=== PATIENT | female | born 1980 | race Caucasian/White ===

== ENCOUNTER 2017-05-10 10:53 | Outpatient (CLI) | payer BC ==
--- NOTE | 2017-05-10 17:45 | Ultrasound Report ---
EXAM: FIRST TRIMESTER OBSTETRIC ULTRASOUND (Less than 11 weeks) EXAM DATE: 05/10/2017 05:26 PM. CLINICAL HISTORY: Check viability please. LMP: 03/10/2017. COMPARISONS: None. TECHNIQUE: Transabdominal and transvaginal ultrasound examination with static image documentation. CLINICAL DATES: EGA 8 weeks 5 days with SATURNINO 12/15/2017 based on LMP. ASSESSMENT: Gestational Sac: Single intrauterine. Mean gestational sac diameter: 20.1 mm = 6 weeks 6 days. Embryo: CRL (crown-rump length) 3.9 mm = 6 weeks 2 days. Cardiac activity: 111 beats per minute. Yolk sac: 4.7 mm. Amniotic fluid: Not accurately assessed at this gestational age. Early placenta: Not visible at this gestational age. Other: Perigestational fluid collection demonstrated superiorly 0.8 x 0.4 x 1.5 cm. MATERNAL STRUCTURES: Uterus: Anteverted. Unremarkable. Cervix: Closed. Right Ovary/Adnexa: Cyst noted, 3.2 x 3.0 x 2.8 cm, otherwise Unremarkable. The ovary measures 4.3 x 3.5 x 3.3 cm, volume 25.9 cc. Left Ovary/Adnexa: Unremarkable. The ovary measures 2.9 x 2.0 x 2.4 cm, volume 7.2 cc. Free Fluid: None. Other: None. IMPRESSION: 1. Single viable intrauterine at EGA 6 weeks 2 days with SATURNINO 01/01/2018 based on discordant , which is concordant with clinical dates. 2. Small superior perigestational fluid collection noted. 3. Right ovarian cyst. [facility] Referring Provider Line: [phone] SITE ID: [id number]
== END 2017-05-10 10:54 | disposition home or self-care (01) ==
LOC: DI 10:53
PROVIDERS: ATTEND Registered Nurse
DX: Z36.9 Encounter for antenatal screening, unspecified (principal); N91.1 Secondary amenorrhea; O34.81 Maternal care for other abnormalities of pelvic organs, first trimester; N83.201 Unspecified ovarian cyst, right side
CPT/HCPCS: 36415; 76801; 84702

== ENCOUNTER 2017-06-24 11:52 | Outpatient (CLI) | payer BC ==
[2017-06-24 12:37] LABS: BASOPHILS # (AUTO) 0.1 10^3/uL (0.0-0.1); BASOPHILS % (AUTO) 0.4 %; EOSINOPHILS # (AUTO) 0.1 10^3/uL (0.0-0.7); EOSINOPHILS % (AUTO) 1.2 %; HGB - HEMOGLOBIN 13.4 g/dL (12.0-16.0); LYMPHOCYTES # (AUTO) 2.3 10^3/uL (1.5-3.5); LYMPHOCYTES % (AUTO) 18.3 %; MEAN CORPUSCULAR HEMOGLOBIN 26.3 pg (27.0-31.0); MEAN CORPUSCULAR VOLUME 79.7 fL (81.0-99.0); MEAN PLATELET VOLUME 8.3 fL (7.9-10.8); MONOCYTES # (AUTO) 0.9 10^3/uL (0.0-1.0); MONOCYTES % (AUTO) 7.2 %; NEUTROPHILS # (AUTO) 9.2 10^3/uL (1.5-6.6); NEUTROPHILS % (AUTO) 72.9 %; PLT - PLATELET COUNT 300 10^3/uL (130-450); RED CELL DISTRIBUTION WIDTH 15.4 % (12.0-15.0); WHITE BLOOD COUNT 12.6 x10^3/uL (4.8-10.8)
[2017-06-24 12:56] LABS: HB2 TOTAL 14.9 g/dL; HEMOGLOBIN A1C 0.53 g/dL; HEMOGLOBIN A1C % 5.4 % (4.6-6.2)
[2017-06-24 13:21] LABS: CREATININE 0.5 mg/dL (0.4-1.0)
[2017-06-24 14:45] LABS: BILIRUBIN,URINE NEGATIVE (NEGATIVE); GLUCOSE, URINE (UA) NEGATIVE (NEGATIVE); KETONES,URINE (UA) NEGATIVE (NEGATIVE); LEUKOCYTE ESTERASE, URINE NEGATIVE (NEGATIVE); NITRITE,URINE NEGATIVE (NEGATIVE); OCCULT BLOOD,URINE NEGATIVE (NEGATIVE); PH,URINE 6.5 PH (5.0-7.5); PROTEIN,URINE NEGATIVE (NEGATIVE); UROBILINOGEN,URINE 0.2 (NORMAL) E.U./dL (NORMAL)
[2017-06-24 14:54] LABS: BACTERIA,URINE Few /HPF (None Seen); CLARITY,URINE CLEAR (CLEAR); RBC,URINE 0-5 /HPF (0-5); SQUAMOUS EPITHELIAL CELL,UR FEW Squamous (<= Few)
[2017-06-25 11:36] LABS: HEPATITIS C ANTIBODY NON-REACTIVE (NON-REACTIVE)
[2017-06-25 14:12] LABS: HEPATITIS B SURFACE ANTIGEN NON-REACTIVE (NON-REACTIVE)
[2017-06-25 16:09] LABS: HIV AG/AB 4TH GEN NON-REACTIVE (NON-REACTIVE)
== END 2017-06-24 11:53 | disposition home or self-care (01) ==
LOC: LAB 11:52
PROVIDERS: ATTEND Registered Nurse
DX: O09.521 Supervision of elderly multigravida, first trimester (principal); Z36.9 Encounter for antenatal screening, unspecified
CPT/HCPCS: 36415; 80048; 81001; 81599; 83036; 85025; 86592; 86762; 86803; 86850; 86900; 86901; 87340; 87389

== ENCOUNTER 2017-08-19 12:29 | Outpatient (CLI) | payer BC ==
--- NOTE | 2017-08-19 15:48 | Ultrasound Report ---
Procedure Date: 08/19/2017 Accession Number: [id number] / [id number] Procedure: US - OB Detailed Eval CPT Code: FULL RESULT: EXAM: OB Detailed Eval DATE: 08/19/2017 2:57 PM CLINICAL HISTORY: ENCOUNTER FOR SUPRVSN NORMAL ,SECOND TRIM TECHNIQUE: Real-time scanning was performed with assistance representative static images obtained. COMPARISON: None LAST MENSTRUAL PERIOD: 05/10/2017 Clinical Age: 21 weeks 0 days US Age: 21 weeks 1 days EFW Hadlock: 362 grams Heart Rate: 146 bpm EDC: 12/30/2017 US EDC: 12/29/2017 BPD Hadlock: 21 weeks 2 days; Mean mm 51 HC Hadlock: 21 weeks 4 days; Mean mm 194 AC Hadlock: 20 weeks 3 days; Mean mm 153 FL Hadlock: 20 weeks 2 days; Mean mm 33 Presentation: Breech Placental Location: Anterior Cervical Length: 4.4 cm Amniotic Fluid: ANDREA Subjectively normal; MVP 3.2 cm FINDINGS: There is a single viable intrauterine gestation, in breech presentation. heart rate is 146 BPM. The placenta is anterior, without evidence of previa. Amniotic fluid volume is subjectively normal, with a deepest pocket of 3.2 cm. No free fluid or adnexal lesion is appreciated. The following anatomic structures were visualized and appear normal: The intracranial contents, including the ventricles and posterior fossa; the lips and orbits; the spine; the heart, including 4 chamber view and outflow tracts, and diaphragm; the abdominal contents, including the stomach, the bilateral kidneys, and urinary bladder, as well as a normal 3-vessel cord insertion; 4 limbs. IMPRESSION: Single viable intrauterine gestation, with size in keeping with LMP dating. Normal anatomic survey.
== END 2017-08-19 12:30 | disposition home or self-care (01) ==
LOC: DI 12:29
PROVIDERS: ATTEND Registered Nurse
DX: Z34.82 Encounter for supervision of other normal pregnancy, second trimester (principal)
CPT/HCPCS: 76811

== ENCOUNTER 2017-09-03 08:00 | Outpatient (CLI) | payer BC | END 2017-09-03 08:01 | LOC: LAB.R 08:00 | PROVIDERS: ATTEND Registered Nurse | DX: R82.99 Other abnormal findings in urine (principal) | CPT/HCPCS: 87086 ==

== ENCOUNTER 2017-09-30 17:57 | Outpatient (CLI) | payer BC ==
[2017-09-30 18:38] LABS: BASOPHILS % (AUTO) 0.3 %; EOSINOPHILS # (AUTO) 0.1 10^3/uL (0.0-0.7); EOSINOPHILS % (AUTO) 0.8 %; HGB - HEMOGLOBIN 12.2 g/dL (12.0-16.0); LYMPHOCYTES # (AUTO) 2.4 10^3/uL (1.5-3.5); LYMPHOCYTES % (AUTO) 15.9 %; MEAN CORPUSCULAR HEMOGLOBIN 25.9 pg (27.0-31.0); MEAN CORPUSCULAR HGB CONC 33.3 g/dL (32.0-36.0); MEAN CORPUSCULAR VOLUME 77.9 fL (81.0-99.0); MEAN PLATELET VOLUME 7.9 fL (7.9-10.8); MONOCYTES # (AUTO) 0.9 10^3/uL (0.0-1.0); MONOCYTES % (AUTO) 5.8 %; NEUTROPHILS # (AUTO) 11.6 10^3/uL (1.5-6.6); NEUTROPHILS % (AUTO) 77.2 %; PLT - PLATELET COUNT 335 10^3/uL (130-450); RED BLOOD COUNT 4.72 10^6/uL (4.20-5.40); RED CELL DISTRIBUTION WIDTH 14.9 % (12.0-15.0)
== END 2017-09-30 17:58 | disposition home or self-care (01) ==
LOC: LAB 17:57
PROVIDERS: ATTEND Registered Nurse
DX: Z34.82 Encounter for supervision of other normal pregnancy, second trimester (principal)
CPT/HCPCS: 36415; 82950; 85025; 86850

== ENCOUNTER 2017-10-14 11:31 | Outpatient (CLI) | payer BC ==
--- NOTE | 2017-10-14 15:34 | Ultrasound Report ---
Reason: UTERINE SIZE-DATE DISCREPANCY, SECOND TRIMESTER Procedure Date: 10/14/2017 Accession Number: [id number] / [id number] Procedure: US - OB F/U or Repeat CPT Code: FULL RESULT: EXAM: COMPLETE OBSTETRICAL ULTRASOUND EXAM DATE: 10/14/2017 12:26 PM. CLINICAL HISTORY: Ultrasound size and date discrepancy. COMPARISON: 08/19/2017. TECHNIQUE: Real-time sonographic evaluation of the fetus performed by the flour tester. Multiple sales representative meats static images were saved for review. DATING: Established EGA 29 weeks and 0 days with SATURNINO 12/30/2017 based on first trimester ultrasound dated 05/10/2017. EGA 30 weeks 0 days with SATURNINO 12/23/2017 based on the current ultrasound. GENERAL EVALUATION [place] . Cardiac activity: 146 bpm. movement: Visualized. Presentation: Cephalic. Placenta: position. No evidence for previa. Umbilical cord: 3 vessel cord. Central placental cord origin. Amniotic fluid: Subjectively normal. MVP 6.8 cm. BIOMETRY Bi-Parietal Diameter (BPD): 7.7 cm, 30 weeks/5 day Head Circumference (HC): 27.6 cm, 30 weeks/1 days Abdominal Circumference (AC): 26.5 cm, 30 weeks/4days Femur Length (FL): 5.6 cm, 29 weeks/2 days Estimated Weight: 1530 gm, 70.2 percentile for 30 weeks/0 days. ANATOMY The intracranial structures, profile, face/nose/lips, spine, 4 chamber heart and outflow tracts, stomach, abdominal wall and cord insertion, diaphragm, kidneys, bladder, and extremities were visualized and demonstrate no abnormality. MATERNAL STRUCTURES Uterus: Unremarkable. Cervix: Long and closed. Transabdominal length cm. Right ovary/adnexa: Unremarkable. Left ovary/adnexa: Unremarkable. Free fluid: None. IMPRESSION: 1. [place] live intrauterine with gestational age 29 weeks/0 days based on initial ultrasound. 2. Estimated weight is within expected limits for assigned dating. 3. Normal anatomic survey. No anatomic abnormalities are detected at this time. [facility]
== END 2017-10-14 11:32 | disposition home or self-care (01) ==
LOC: DI 11:31
PROVIDERS: ATTEND Registered Nurse
DX: O26.842 Uterine size-date discrepancy, second trimester (principal); Z3A.29 29 weeks gestation of pregnancy
CPT/HCPCS: 76816

== ENCOUNTER 2017-10-25 13:08 | Outpatient (CLI) | payer BC ==
[2017-10-25 13:46] LABS: HGB - HEMOGLOBIN 11.8 g/dL (12.0-16.0); MEAN CORPUSCULAR HEMOGLOBIN 25.5 pg (27.0-31.0); MEAN CORPUSCULAR HGB CONC 33.4 g/dL (32.0-36.0); MEAN CORPUSCULAR VOLUME 76.2 fL (81.0-99.0); MEAN PLATELET VOLUME 8.3 fL (7.9-10.8); RED BLOOD COUNT 4.65 10^6/uL (4.20-5.40); RED CELL DISTRIBUTION WIDTH 15.2 % (12.0-15.0); WHITE BLOOD COUNT 12.6 x10^3/uL (4.8-10.8)
[2017-10-25 14:10] LABS: ALBUMIN/GLOBULIN RATIO 0.8 (1.0-2.2); BILIRUBIN,TOTAL 0.2 mg/dL (0.2-1.0); CREATININE 0.7 mg/dL (0.4-1.0); TOTAL PROTEIN 6.6 g/dL (6.7-8.2)
[2017-10-25 15:34] LABS: PROTEIN/CREATININE RATIO,URINE 0.2 (<=0.2)
== END 2017-10-25 13:09 | disposition home or self-care (01) ==
LOC: LAB 13:08
PROVIDERS: ATTEND Nurse Practitioner Obstetrics & Gynecology
DX: O13.9 Gestational [pregnancy-induced] hypertension without significant proteinuria, unspecified trimester (principal)
CPT/HCPCS: 36415; 80053; 82570; 84156; 84550; 85027

== ENCOUNTER 2017-11-17 14:11 | Outpatient (CLI) | payer BC ==
[2017-11-17 14:36] LABS: HGB - HEMOGLOBIN 11.7 g/dL (12.0-16.0); MEAN CORPUSCULAR HEMOGLOBIN 24.7 pg (27.0-31.0); MEAN CORPUSCULAR HGB CONC 32.9 g/dL (32.0-36.0); MEAN CORPUSCULAR VOLUME 75.1 fL (81.0-99.0); MEAN PLATELET VOLUME 8.1 fL (7.9-10.8); RED BLOOD COUNT 4.73 10^6/uL (4.20-5.40); RED CELL DISTRIBUTION WIDTH 14.9 % (12.0-15.0); WHITE BLOOD COUNT 13.9 x10^3/uL (4.8-10.8)
[2017-11-17 14:40] LABS: COLLECTION TIME,URINE 1440 min; TOTAL VOLUME,URINE 2400 mL
[2017-11-17 14:49] LABS: ALBUMIN 2.9 g/dL (3.2-5.5); ALBUMIN/GLOBULIN RATIO 0.8 (1.0-2.2); BILIRUBIN,TOTAL 0.2 mg/dL (0.2-1.0); CALCIUM 8.9 mg/dL (8.5-10.3); CREATININE 0.7 mg/dL (0.4-1.0); TOTAL PROTEIN 6.4 g/dL (6.7-8.2); URIC ACID 4.1 mg/dL (2.6-7.2)
[2017-11-17 14:50] LABS: CREATININE,URINE 88.5 mg/dL; PROTEIN/CREATININE RATIO,URINE 0.2 (<=0.2)
== END 2017-11-17 14:12 | disposition home or self-care (01) ==
LOC: LAB 14:11
PROVIDERS: ATTEND Nurse Practitioner Obstetrics & Gynecology
DX: O13.3 Gestational [pregnancy-induced] hypertension without significant proteinuria, third trimester (principal)
CPT/HCPCS: 36415; 80053; 81599; 82570; 82575; 83615; 84156; 84550; 85027

== ENCOUNTER 2017-11-20 10:20 | Outpatient (CLI) | payer BC ==
[2017-11-20 11:11] VITALS: BP 141/89
== END 2017-11-20 11:15 | disposition home or self-care (01) ==
LOC: WFO 10:20 → FBP 10:21 → WFO 11:15
PROVIDERS: ATTEND Registered Nurse
DX: O14.03 Mild to moderate pre-eclampsia, third trimester (principal); O26.843 Uterine size-date discrepancy, third trimester; Z3A.34 34 weeks gestation of pregnancy
CPT/HCPCS: 59025; 76816

== ENCOUNTER 2017-11-20 11:18 | Outpatient (CLI) | payer BC ==
--- NOTE | 2017-11-20 16:43 | Ultrasound Report ---
Reason: UTERINE SIZE-DATE DISCREPANCY 3RD TRIMESTER Procedure Date: 11/20/2017 Accession Number: [id number] / [id number] Procedure: US - OB F/U or Repeat CPT Code: FULL RESULT: EXAM: COMPLETE OBSTETRICAL ULTRASOUND EXAM DATE: 11/20/2017 11:56 AM. CLINICAL HISTORY: Size, date discrepancy. COMPARISON: OB follow-up or repeat 10/14/2017 11:40 AM. TECHNIQUE: Real-time sonographic evaluation of the fetus performed by the crank hand. Multiple sales representative meats static images were saved for review. DATING: Established EGA 34 weeks 2 days with SATURNINO 12/30/2017 based on the initial ultrasound. Last menstrual period reported as 03/10/2017 with SATURNINO 12/15/2017. EGA 36 weeks and 4 days with SATURNINO 12/14/2017 based on the current ultrasound. GENERAL EVALUATION [place] . Cardiac activity: 150 bpm. movement: Visualized. Presentation: Cephalic. Placenta: Anterior position. No evidence for previa. Amniotic fluid: ANDREA 15.8 MVP 5.4 cm. BIOMETRY Bi-Parietal Diameter (BPD): 9 cm, 36 weeks 3 days. Head Circumference (HC): 33.3 cm, 38 weeks 1 day. Abdominal Circumference (AC): 33.5 cm, 37 weeks 3 days. Femur Length (FL): 6.6 cm, 34 weeks 1 day. Estimated Weight: 2973 gm, 95th percentile for 34 weeks and 2 days. MATERNAL STRUCTURES Uterus: Unremarkable. Cervix: Long and closed. Transabdominal length 4.4 cm. Adnexa not seen. Free fluid: None. IMPRESSION: 1. [place] live intrauterine with gestational age 34 weeks 2 days based on the initial ultrasound and an estimated gestational age of 36 weeks and 3 days based on the last menstrual period. 2. The estimated gestational age on today's ultrasound is 36 weeks and 4 days which is concordant with the last menstrual period. The estimated weight would represent approximately the 60th percentile for a gestation of that age. ABHIJEET
== END 2017-11-20 11:19 | disposition home or self-care (01) ==
LOC: DI 11:18
PROVIDERS: ATTEND Nurse Practitioner Obstetrics & Gynecology
DX: O26.843 Uterine size-date discrepancy, third trimester (principal)
CPT/HCPCS: 76816

== ENCOUNTER 2017-11-26 15:29 | Outpatient (CLI) | payer BC ==
[2017-11-26 15:44] VITALS: BP 135/70
== END 2017-11-26 16:05 | disposition home or self-care (01) ==
LOC: WFO 15:29 → FBP 15:31 → WFO 16:05
PROVIDERS: ATTEND Nurse Practitioner Obstetrics & Gynecology
DX: O14.93 Unspecified pre-eclampsia, third trimester (principal); Z3A.34 34 weeks gestation of pregnancy
CPT/HCPCS: 59025